=== PATIENT | female | born 1945 | race Caucasian/White ===

== ENCOUNTER 2017-02-04 13:21 | Emergency (ER) | payer OTHER ==
[~2017-02-04] VITALS: Ht 157.5 cm; Wt 86.2 kg
[~2017-02-04 13:21] MED LIST: NAPROXEN500 MG PO
--- NOTE | 2017-02-04 14:03 | ED CARDIAC/CP/PALPITATIONS ---
History of Present Illness General Chief Complaint: General Adult Stated Complaint: "TWINGES" IN CHEST, BP FLUCTUATING, HX AFIB Source: patient, family, old records Exam Limitations: no limitations Vital Signs & Intake/Output Vital Signs & Intake/Output Vital Signs Date Time Temp Pulse Resp B/P B/P Pulse O2 O2 Flow FiO2 Mean Ox Delivery Rate 02/04 1807 70 18 170/70 97 Room Air 02/04 1526 65 18 153/103 99 Room Air 02/04 1331 98.4 86 18 166/76 98 Room Air Allergies Coded Allergies: epinephrine (Intermediate, AFIB 11/24/15) morphine (Intermediate, DIZZY 11/24/15) shellfish derived (Intermediate, RASH SWELLING 11/24/15) Sulfa (Sulfonamide Antibiotics) (UNKNOWN 11/24/15) Reconcile Medications Carvedilol 25 MG TABLET 1 TAB PO BID HEART (Reported) Cholecalciferol (Vitamin D3) (Vitamin D) 2,000 UNIT TABLET 1 TAB PO DAILY VITAMIN SUPPORT (Reported) Dicyclomine HCl 10 MG CAPSULE 1 CAP PO Q6P PRN GI (Reported) Folic Acid 0.4 MG TABLET 1 TAB PO DAILY VITAMIN SUPPORT (Reported) Lisinopril 40 MG TABLET 1 TAB PO DAILY HEART (Reported) Naproxen 500 MG TABLET 1 TAB PO BID PRN PAIN (Reported) Ondansetron HCl 4 MG TABLET 1 TAB PO Q6P PRN GI (Reported) Psyllium Husk (Metamucil) 0.4 GRAM CAPSULE 3 CAP PO DAILY GI (Reported) Warfarin Sodium (Coumadin) 2.5 MG TABLET 1 TAB PO SuTu BLOOD THINNER ( Reported) Warfarin Sodium (Coumadin) 2.5 MG TABLET 1.25 TAB PO MoWeThFrSa BLOOD THINNER (Reported) Triage Note: 71 YO FEMALE TO TRIAGE. STATES SHE HAD DENTAL WORK ON MONDAY, STATES MONDAY SHE WAS DIZZY. STATES SHE HAS BEEN TAKING IT EASY BUT THIS AM WOKE UP WITH A HEADACHE, STATES TOOK TYLENOL WITH RELIEF. STATES HER BLOOD PRESSURE WAS "UP AND DOWN" TODAY. STATES SHE NOTICIED A "TWINGE" ON THE L SIDE OF HER CHEST. DENEIS PAIN, DENIES SOB. Triage Nurses Notes Reviewed? yes HPI: This morning patient developed a frontal throbbing headache. This was very unusual for the patient as she does not usually suffer from a days. She rated the pain as a 3 out of 10. There is no blurry vision. There is no nausea or vomiting. Patient took half of a Tylenol tablet and lay down. Patient was able to fall asleep when she woke up she was feeling better however the headache began to come back. She took her blood pressure and it was a little bit elevated. Patient became nervous and she started to take her blood pressure more often. Her blood pressure was fluctuating between normal and hypertensive. Patient still denies any blurry vision, nausea or vomiting. The headache began to come back within a one 08 and on its own. There is no radiation when she had a headache. There are no aggravating factors. There is no photophobia. She rated the pain as a 3 out of 10. Patient then had a twinge feeling in her left anterior chest. The twinge lasted a few seconds and then went away. There is no radiation. There are no aggravating or mitigating factors. She rated as moderate on the scale. Patient decided to come in for evaluation. All walking across the parking lot she had another episode of the twinge in her chest. Again it lasted just a few seconds and then went away. There were no other symptoms when she was walking around the ER. Patient is currently asymptomatic. Past History Travel History Traveled to [place] past 21 day No Medical History Any Pertinent Medical History? 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 No Review of Systems Review of Systems Constitutional: Reports: no symptoms. EENTM: Reports: no symptoms. Respiratory: Reports: no symptoms. Cardiovascular: Reports: see HPI, chest pain. GI: Reports: no symptoms. Genitourinary: Reports: no symptoms. Musculoskeletal: Reports: no symptoms. Skin: Reports: no symptoms. Neurological/Psychological: Reports: see HPI, headache. Hematologic/Endocrine: Reports: no symptoms. Immunologic/Allergic: Reports: no symptoms. All Other Systems: Reviewed and Negative Physical Exam Physical Exam General Appearance: well developed/nourished, alert, awake, anxious, mild distress Head: atraumatic, normal appearance Eyes: Bilateral: PERRL, EOMI. Ears, Nose, Throat: normal pharynx, normal ENT inspection, hearing grossly normal Neck: normal inspection, supple, full range of motion Respiratory: normal breath sounds, chest non-tender, no respiratory distress, lungs clear Cardiovascular: normal peripheral pulses, systolic murmur, irregularly irregular Gastrointestinal: normal bowel sounds, soft, non-tender, no organomegaly Back: normal inspection, normal range of motion Extremities: normal capillary refill, normal range of motion, pedal edema Neurologic/Psych: no motor/sensory deficits, awake, alert, oriented x 3, normal gait, normal mood/affect Skin: intact, warm/dry Lymphatic: no anterior cervical greg Core Measures ACS in differential dx? No Severe Sepsis Present: No Septic Shock Present: No Progress Differential Diagnosis: AMI, atrial fibrillation, costochondritis, intracranial hemorrhage, musculoskeletal pain, myocarditis, pericarditis, pulmonary embolism Plan of Care: Orders Procedure Date/time Status Heart Healthy Diet 02/05 B Active TROPONIN LEVEL 02/04 1730 Complete Telemetry/Orthopedic Podiatrist 02/04 1402 Active TROPONIN LEVEL 02/04 1402 Complete PARTIAL THROMBOPLASTIN TIME 02/04 1402 Complete PROTHROMBIN TIME 02/04 1402 Complete COMPREHENSIVE METABOLIC PANEL 02/04 1402 Complete CBC WITHOUT DIFFERENTIAL 02/04 1402 Complete EKG 02/04 1323 Active Laboratory Tests 02/04/17 1720: Troponin I < 0.01 02/04/17 1416: Anion Gap 6, Estimated GFR 54 L, BUN/Creatinine Ratio 21.0, Glucose 89, Calcium 9.1, Total Bilirubin 1.1, AST 27, ALT 33, Alkaline Phosphatase 86, Troponin I < 0.01, Total Protein 7.0, Albumin 3.7, Globulin 3.3, Albumin/Globulin Ratio 1.1, PT 33.4 H, INR 3.22 H, APTT 43 H, CBC w Diff NO MAN DIFF REQ, RBC 3.53 L, MCV 87.3, MCH 29.6, RDW 14.9 H, MPV 7.1 L, Gran % 55.2, Lymphocytes % 29.9, Monocytes % 10.2 H, Eosinophils % 4.0, Basophils % 0.7, Absolute Granulocytes 1.8, Absolute Lymphocytes 1.0 L, Absolute Monocytes 0.3, Absolute Eosinophils 0.1, Absolute Basophils 0, PUBS MCHC 33.8 Diagnostic Imaging: Viewed by Me: CT Scan. Discussed w/RAD: CT Scan. Radiology Impression: PATIENT: LISHA GUERRERO PRESENT AGE: 71 PATIENT ACCOUNT NO: [id number] : 43 LOCATION: [facility] ORDERING PHYSICIAN: LEX MONROE MD SERVICE DATE: 02/04/17 EXAM TYPE: CAT - CT HEAD WO IV CONTRAST EXAMINATION: CT HEAD WITHOUT CONTRAST CLINICAL INFORMATION: Headache and 71-year-old female on Coumadin therapy. COMPARISON: None TECHNIQUE: Contiguous axial imaging was performed from the skull base to vertex without intravenous administration of contrast. DLP: 544 mGy-cm FINDINGS: Mild atherosclerotic calcification of cavernous carotid arteries. The brain parenchyma has normal attenuation with well-preserved khalil-white matter differentiation. No evidence of intracranial hemorrhage, extra-axial fluid collection, focal mass effect or midline shift. The ventricles, sulci and basilar cisterns are unremarkable. Within subcutaneous tissues of the left parietal scalp, there is focal high attenuation of approximately 90-100 HU, compatible with soft tissue calcification, possibly sequela of remote trauma. The underlying calvarium is intact. There is mucoperiosteal thickening of the left sphenoid sinus consistent with chronic sinusitis. Otherwise, the visualized paranasal sinuses, mastoid air cells and middle ear cavities are well aerated. There is nonaggressive lucency and sclerosis of the left frontal bone; this has the appearance of fibrous dysplasia. IMPRESSION: 1. No acute intracranial pathology. Specifically, no evidence of acute intracranial hemorrhage. 2. Incidentally noted is mucoperiosteal thickening of the left sphenoid sinus, consistent with chronic sinusitis. 3. The nonaggressive lucency and sclerosis within the left frontal bone has the appearance of fibrous dysplasia. There are no aggressive calvarial lesions. DICTATED BY: KENDRICK BASHIR MD DATE/TIME DICTATED:02/04/171430 COMPLETION ENGINEER:SUKI DATE/TIME TRANSCRIBED:1430 CONFIDENTIAL, DO NOT COPY WITHOUT APPROPRIATE AUTHORIZATION. < Electronically signed in Other Vendor System> SIGNED BY: KENDRICK BASHIR MD 02/04/17 6951 Initial ED EKG: AFIB, nonspecific ST T wave chg Prior EKG: unchanged Rhythm Strip: atrial fibrillation Departure Departure Disposition: HOME OR SELF CARE Condition: Stable Clinical Impression Primary Impression: Chest pain, unspecified Qualifiers: Chest pain type: other chest pain Qualified Code: R07.89 - Other chest pain Secondary Impressions: Hypertension Referrals: ANDREW MARIEE DO (PCP/Family) Additional Instructions: FOLLOW UP WITH YOUR CERTIFIED INDUSTRIAL HYGIENIST ON MONDAY RETURN IF SYMPTOMS WORSEN OR FOR ANY CONCERNS Departure Forms: Customer Survey General Discharge Information Critical Care Note Critical Care Note Critical Care Time: non-applicable
[2017-02-04] MEDS ORDERED: CARVEDILOL25 M1 PO (14:06)
[2017-02-04] MEDS ORDERED: LISINOPRIL40 M1 PO (14:06)
[2017-02-04] MEDS ORDERED: COUMADIN2.5 M1 PO ×2 (14:07→14:08)
[2017-02-04] MEDS ORDERED: FOLIC ACID0.4 M1 PO (14:09)
[2017-02-04] MEDS ORDERED: METAMUCIL0.4 GM PO (14:09)
[2017-02-04] MEDS ORDERED: DICYCLOMINE HCL10 M1 PO (14:10)
[2017-02-04] MEDS ORDERED: VITAMIN D2000 UNI1 PO (14:10)
[2017-02-04] MEDS ORDERED: NAPROXEN500 M2 PO (14:12)
[2017-02-04] MEDS ORDERED: ONDANSETRON HCL4 MG PO (14:12)
[2017-02-04 14:35] LABS: ABSOLUTE BASOPHIL COUNT 0 /CUMM (0.0-0.2); ABSOLUTE EOSINOPHIL COUNT 0.1 /CUMM (0.0-0.7); ABSOLUTE GRANULOCYTE CT 1.8 /CUMM (1.4-6.5); ABSOLUTE MONOCYTE COUNT 0.3 /CUMM (0.10-0.60); BASOPHIL % 0.7 % (0.0-2.0); GRANULOCYTE % 55.2 % (42.2-75.2); HEMATOCRIT 30.8 % (37-47); MEAN CORPUSCULAR HGB 29.6 PG (27.0-31.0); MEAN CORPUSCULAR HGB CONC 33.8 G/DL (33.0-37.0); MEAN CORPUSCULAR VOLUME 87.3 FL (81.0-99.0); MEAN PLATELET VOLUME 7.1 FL (7.4-10.4); PLATELET COUNT 152 /CUMM (130-400); RBC DISTRIBUTION WIDTH 14.9 % (11.5-14.5); RED BLOOD CELL CT 3.53 /CUMM (4.20-5.40); WHITE BLOOD CELL COUNT 3.3 /CUMM (4.8-10.8)
[2017-02-04 14:43] LABS: PT 33.4 SEC (9.4-12.5); PTT 43 SEC (25-37)
--- NOTE | 2017-02-04 14:44 | CT SCAN REPORT ---
EXAMINATION: CT HEAD WITHOUT CONTRAST CLINICAL INFORMATION: Headache and 71-year-old female on Coumadin therapy. COMPARISON: None TECHNIQUE: Contiguous axial imaging was performed from the skull base to vertex without intravenous administration of contrast. DLP: 544 mGy-cm FINDINGS: Mild atherosclerotic calcification of cavernous carotid arteries. The brain parenchyma has normal attenuation with well-preserved khalil-white matter differentiation. No evidence of intracranial hemorrhage, extra-axial fluid collection, focal mass effect or midline shift. The ventricles, sulci and basilar cisterns are unremarkable. Within subcutaneous tissues of the left parietal scalp, there is focal high attenuation of approximately 90-100 HU, compatible with soft tissue calcification, possibly sequela of remote trauma. The underlying calvarium is intact. There is mucoperiosteal thickening of the left sphenoid sinus consistent with chronic sinusitis. Otherwise, the visualized paranasal sinuses, mastoid air cells and middle ear cavities are well aerated. There is nonaggressive lucency and sclerosis of the left frontal bone; this has the appearance of fibrous dysplasia. IMPRESSION: 1. No acute intracranial pathology. Specifically, no evidence of acute intracranial hemorrhage. 2. Incidentally noted is mucoperiosteal thickening of the left sphenoid sinus, consistent with chronic sinusitis. 3. The nonaggressive lucency and sclerosis within the left frontal bone has the appearance of fibrous dysplasia. There are no aggressive calvarial lesions.
[2017-02-04 18:07] VITALS: BP 170/70
== END 2017-02-04 18:20 ==
LOC: ERH 13:21
PROVIDERS: Emergency Medicine
DX: R07.89 Other chest pain (principal); I10 Essential (primary) hypertension
CPT/HCPCS: 93005; 93010